=== PATIENT | male | born 1985 | race Caucasian/White ===

== ENCOUNTER 2019-11-24 14:50 | Emergency (ER) | payer OTHER ==
[~2019-11-24] VITALS: Ht 188 cm; Wt 79.7 kg
[2019-11-24] MEDS ORDERED: DICLOFENAC SODI75 MG PO (23:47)
[2019-11-24] MEDS ORDERED: OMEPRAZOLE20 MG PO (23:47)
== END 2019-11-24 23:58 | disposition home or self-care (01) ==
LOC: ED 14:50
DX: M94.0 Chondrocostal junction syndrome [Tietze] (principal); I10 Essential (primary) hypertension; Z87.891 Personal history of nicotine dependence
CPT/HCPCS: 71046; 99284-25

== ENCOUNTER 2020-04-13 18:34 | Observation (INO) | payer OTHER ==
[~2020-04-13] VITALS: Ht 188 cm; Wt 79.8 kg
[~2020-04-13 18:34] MED LIST: DICLOFENAC SODI75 MG PO; OMEPRAZOLE20 MG PO
[2020-04-13] MEDS ORDERED: OMEPRAZOLE40 MG PO (18:45)
[2020-04-13] MEDS ORDERED: NALTREXONE HCL50 MG PO (18:45)
[2020-04-13] MEDS ORDERED: ESCITALOPRAM OXA5 MG PO (18:45)
--- NOTE | 2020-04-13 22:30 | NUR ---
PT ARRIVED TO ROOM 128 AT 2150 VIA STRETCHER, ACCOMPANIED BY HIS MOTHER, CORTES. PT IS DROWSY, BUT ORIENTED. PT ABLE TO MOVE SELF OVER TO BED FROM STRETCHER WITHOUT ASSISTANCE. DENIES PAIN. CIWA: 7 AT THIS TIME. LUNGS CLEAR, RA. HR REGULAR. BOWEL TONES ACTIVE. IV INTACT & PATENT, INFUSING WNL. SCHEDULED MEDS GIVEN PER EMAR. SEIZURE PADS AND BED ALARM PLACED FOR SAFETY. QUIET, DARKENED ENVIRONMENT PROMOTED. CALL LIGHT WITHIN REACH, MOTHER REMAINS IN ROOM AT THIS TIME.
--- NOTE | 2020-04-14 00:33 | NUR ---
ASSESSMENT COMPLETED, CIWA 6 AT THIS TIME. PT DENIES PAIN. PT VOIDED USING URINAL, UA SENT TO LAB. REMAINDER OF ASSESSMENT UNCHANGED. NO FURTHER REQUESTS AT THIS TIME, SEIZURE PADS AND BED ALARM REMAIN ON FOR SAFETY.
--- NOTE | 2020-04-14 02:08 | NUR ---
PT SLEEPING SOUNDLY AT THIS TIME, RR:16, HR:86. HOLDING SCHEDULED PHENOBARBITAL AT THIS TIME.
--- NOTE | 2020-04-14 04:33 | NUR ---
PT SLEEPING SOUNDLY AT THIS TIME, NO APPARENT DISTRESS. RESPIRATIONS EVEN AND UNLABORED, LUNG SOUNDS REMAIN CLEAR ON ROOM AIR. RR:14, SPO2:99% HR REGULAR, RATE 80'S. IVF INFUSING WNL, IV SITE INTACT. BED ALARM AND SEIZURE PADS REMAIN IN PLACE FOR SAFETY, PT'S MOTHER SLEEPING ON COUCH. WILL ALLOW FOR REST AND CONTINUE TO MONITOR.
--- NOTE | 2020-04-14 05:25 | NUR ---
PT AWOKEN FOR MORNING LABS. CIWA 7 AT THIS TIME. SCHEDULED PHENOBARBITAL GIVEN PER ORDERS. MOTHER LEFT FOR HOME, STATED TO CALL IF PT'S BECOMES AGITATED OR ANXIOUS.
--- NOTE | 2020-04-14 06:54 | NUR ---
URINAL EMPTIED AND FRESH WATER PROVIDED. PT DENIES FURTHER REQUESTS.
--- NOTE | 2020-04-14 07:30 | NUR ---
REPORT RECIEVED. PATIENT IS RESTING IN BED.
--- NOTE | 2020-04-14 08:00 | NUR ---
IS AWAKE, DENIES PAIN. FLAT AFFECT. POOR EYE CONTACT. TALKED WITH PATIENT ABOUT POC FOR DAY, IS UNDERSTANDING. IVF PATENT. DENIES NAUSEA. CLEAR LIQUID BREAKFAST ORDERED. PATIENT MOTHER IN ROOM. PATIENT IS SHAKEY. STATES HE FLLES ANXIOUS. VALIUM 10 MG PO GIVEN.
[2020-04-14] MEDS ORDERED: VITAMIN D21250 MCG PO (09:04)
[2020-04-14] MEDS ORDERED: CLONAZEPAM0.5 MG PO (09:04)
--- NOTE | 2020-04-14 09:20 | NUR ---
TOOK CLEAR LIQUIDS WELL. DR. RICK HERE TO SEE PATIENT AND DISCUSS POC. ORDERS RECIEVED. PATIENT STATES HE IS MORE CALM AFTER TAKING VALIUM. REMAINS SHAKEY.
--- NOTE | 2020-04-14 10:23 | NUR ---
SPOKE WITH PATIENT IN ROOM. MOTHER IS IN ROOM ALSO. PATIENT LIVES IN APARTMENT WITH ROOMMATES. HAS STAIRS BUT HAS NO AMBULATION ISSUES. IS NOT EMPLOYED, DOES NOT DRIVE. PATIENT DENIES HE HAS FINANCIAL WORRY ABOUT COST OF MEDS, FOOD OR UTILITIES. PATIENT HAS OBVIOUS TREMORS, YAWNS MULTIPLE TIMES. IS ORIENTED, BUT DOES NOT MAKE EYE CONTACT WELL. PATIENT IS "NOT SURE" ABOUT IF HE WANTS RESOURCES FOR ALCOHOL AND DRUG PROGRAM. PATIENT STATES "I THINK I CAN DO THIS ON MY OWN". OFFERED TO CALL [facility] [employer] [facility] TO HAVE SOMEONE COME TALK WITH HIM ABOUT WHAT OPTIONS HE HAS AND POSSIBLE SUPPORT AFTER HE LEAVES HERE. PATIENT REFUSES, STATES "I'LL THINK ABOUT IT". DISCUSSED THAT TALKING WITH THEM DOESN'T MEAN HE HAS TO MAKE ANY DECISIONS IMMEDIATELY, ITS JUST SUPPORT. HE STILL REFUSES. ENCOURAGED HIM TO CONSIDER IT AND LET NURSES KNOW. PATIENT STATES HE HAS A LOT OF ANXIETY. ASKED IF HE HAS EVER SEEN [facility] TO HELP WITH ANXIETY. HE HAS NOT. GAVE HIM THE CONTACT INFO AND NUMBERS FOR [facility] ALCOHOL/DRUG PROGRAM AND [facility] PROGRAMS TO CONTACT AT HIS DECISION. PATIENT PLANS TO GO BACK TO HIS APARTMENT AT DISCHARGE. HIS MOTHER STATED SHE WAS TRYING TO CONVINCE HIM TO COME STAY WITH FAMILY. HE STATES HE WANTS TO SLEEP IN HIS OWN BED. HE DOES NOT WANT TO CONSIDER GOING ANYWHERE ELSE. DISCUSSED IF HE CHANGES HIS MIND ON ANYTHING AND WANTS ME TO COME BACK HE CAN LET NURSES KNOW.
--- NOTE | 2020-04-14 10:40 | NUR ---
TOOK EARLY LUNCH. TOOK APPROX 30%. DENEIS STONE.
--- NOTE | 2020-04-14 11:53 | NUR ---
SLEEPING AT THIS TIME. NO DISTRESS NOTED. WILL HOLD ON ASSESSMENT UNTIL WAKES.
--- NOTE | 2020-04-14 13:54 | NUR ---
2PA WITH ARCHIE LANDEROS , AMBULATING OUT IN AND [place] AND BACK TO CCU. PATIENT TOLERATED WELL. UP IN CHAIR, VITALS CHARTED. DAD BACK IN ROOM, CALL LIGHT IN REACH
--- NOTE | 2020-04-14 13:55 | NUR ---
AMBULATED AROUND UNIT. TOLERATED WELL. PATIENT STATES HE FEELS STABLE ON FEET. IS SHAKEY. MILD SHORTNESS OF BREATH. DR. RICK UPDATED. DR. RICK PLAN STO DISCHARGE PATIENT THIS AFTERNOON.
[2020-04-14] MEDS ORDERED: GABAPENTIN300 MG PO (14:00)
--- NOTE | 2020-04-14 14:00 | NUR ---
DISCHARGE MAUREEN RECIEVED. MONITOR DC'D. IV SITE DC'D WITH CATH INTACT.
--- NOTE | 2020-04-14 14:03 | NUR ---
NOTICED PT AMBULATING IN [place] WITH ARCHIE LANDEROS AND BELEN DAVIS. ENTERED UNIT AND FOUND PT'S FATHER STANDING IN [place]. I AM FAMILIAR WITH THE FAMILY AND DAD OLEKSANDR SHARED WITH ME THE PAIN HE FEELS FOR HIS SON AND FRUSTRATED THAT HE WON'T TRY TO HELP HIMSELF. PT ACCORDING TO OLEKSANDR DENIES HE NEEDS HELP. PT STATES THAT HE CAN "DO IT MYSELF". OLEKSANDR WOULD LIKE TO VISIT WITH DR RICK BEFORE SHIFT CHANGE AND ARCHIE LANDEROS WILL CONTACT . GAVE ENCOURAGEMENT AND ADDITIONAL CORSETIER.
--- NOTE | 2020-04-14 14:10 | NUR ---
DISCHARGE INSTURCTIONS GIVEN WITH PATIENT UNDERSTANDING.
--- NOTE | 2020-04-14 14:40 | NUR ---
DISCHARGED VIA W/C ACCOMP BALL MAKER AND FATHER.
--- NOTE | 2020-04-15 21:12 | EKG ---
[facility] [address] [facility] [place], [place] [address] Signed Normal sinus rhythm Right atrial enlargement Borderline ECG No previous ECGs available Confirmed by DEJON TAMAYO DO ([id number]) on 04/15/2020 9:12:22 PM Electronically Signed By: DEJON TAMAYO DO 04/15/202111 PATIENT NAME: OLLIE GRACE Electrocardiogram DATE OF : [birth year] PHYSICIAN: DEJON TAMAYO DO REPORT #: [id number] REPORT IS CONFIDENTIAL AND NOT TO BE RELEASED WITHOUT AUTHORIZATION
== END 2020-04-14 14:40 | disposition home or self-care (01) ==
LOC: ED 18:34 → CCU 18:36
PROVIDERS: ADMIT Internal Medicine
DX: F10.239 Alcohol dependence with withdrawal, unspecified (principal); R56.9 Unspecified convulsions; K70.10 Alcoholic hepatitis without ascites; E86.1 Hypovolemia; E87.1 Hypo-osmolality and hyponatremia; E86.0 Dehydration; E87.2 Acidosis; E83.52 Hypercalcemia; F41.9 Anxiety disorder, unspecified; Z79.899 Other long term (current) drug therapy; Y90.0 Blood alcohol level of less than 20 mg/100 ml
CPT/HCPCS: 36415; 72100; 72125; 80053; 81001; 83735; 85025; 85610; 93005; 93010; 96365; 96366; 96375; 96376; 99285-25; C9803; G0378; G0480; J2060; J2560; J3411; J7030; J7042; U0002

== ENCOUNTER 2020-05-12 10:58 | Day surgery (SDC) | payer OTHER ==
[~2020-05-12] VITALS: Ht 185.4 cm; Wt 83.4 kg
[~2020-05-12 10:58] MED LIST changes: +CLONAZEPAM0.5 MG PO; +ESCITALOPRAM OXA5 MG PO; +GABAPENTIN300 MG PO; +NALTREXONE HCL50 MG PO; +OMEPRAZOLE40 MG PO; +VITAMIN D21250 MCG PO
--- NOTE | 2020-05-12 13:00 | NUR ---
05/12/20 1300 Vivi Miranda 1237 PT ARRIVED IN PACU LAYING IN PRONE POSITION AND WIDE AWAKE. 1240 REPOSITIONED TO BACK AND TALKING TO STAFF. 1245 PT GETTING DRESSED. DC INSTRUCTIONS GIVEN. ALL QUESTIONS ANSWERED. 1250 LEFT VIA W/C.
--- NOTE | 2020-05-14 17:23 | PATH ---
[facility] [address] [facility] [place] [address] Signed SPECIMEN(S): A BONE MARROW - CORE SPECIMEN(S): B BONE MARROW - ASPIRATION SPECIMEN(S): C COMP-FLOW, BM EDTA CLINICAL HISTORY: 34-year-old male with alcohol use disorder, pancytopenia and chest wall mass. D61.818 (other pancytopenia) DIAGNOSIS SUMMARY: A. Peripheral blood - Neutropenia. - Low normal hemoglobin with elevated MCV. B. Bone marrow, aspirate smears, clot section cell block and core biopsy: - Hypocellular bone marrow (30-40%) with progressive trilineage hematopoiesis. - No morphologic or immunophenotypic evidence of high-grade myeloid neoplasia or a lymphoproliferative disease. - Increased stainable iron. - Please see Diagnostic Comment. DIAGNOSTIC COMMENT: Review of included clinical notes reveals a history of chronic alcohol use with neutropenia. The bone marrow examination demonstrates no morphologic or immunophenotypic evidence of high-grade myeloid neoplasia or a lymphoproliferative disease. The peripheral blood and bone marrow findings could be related to toxic effect of alcohol on normal hematopoiesis. Low-grade myelodysplastic syndrome cannot be entirely excluded. FISH probes for MDS and cytogenetic study have been ordered and the results will be reported in an addendum. GP:[facility]:C2NR PERIPHERAL BLOOD: HEMOGRAM ([facility], 05/12/2020): WBC 2.6 K/uL, RBC 3.8 M/uL, HGB 13.7 g/dL, HCT 40.0%, MCV 105.2 fL, MCH 36 pg, MCHC 34 g/dL, RDW 12.7%, PLT 208 K/uL. DIFFERENTIAL (100 cells): Neutrophils 31%, lymphocytes 62%, monocytes 2%, eosinophils 4%, basophils 1%. The blood smear is consistent with the CBC. WBC count is moderately decreased with absolute neutropenia. Neutrophils and bands are unremarkable. No blasts or otherwise immature dells detected. Lymphocytes are predominantly small, with condensed chromatin pattern and scant to moderate amount of cytoplasm. Rare large granular lymphocytes are noted. PATIENT NAME: OLLIE GRACE PATHOLOGY DATE OF : [birth year] REPORT #: [id number] PHYSICIAN: ELI MASON PCP: ZAKI ORTEZ MD REPORT IS CONFIDENTIAL AND NOT TO BE RELEASED WITHOUT AUTHORIZATION [facility] [address] [place], [place] [address] Signed Hemoglobin is low normal with elevated MCV; red blood cells are predominantly round, normochromic, macrocytic. Occasional myelocytes, spherocytes and rare target cells are noted. Schistocytes are not significantly increased. Platelets are normal in count and appearance. GP:[facility] BONE MARROW: BONE MARROW DIFFERENTIAL (300 cells): Blasts 2%, promyelocytes 2%, myelocytes 5%, 5%, metamyelocytes 6%, bands 21%, neutrophils 15%, pronormoblasts 1%, normoblasts 25%, lymphocytes 14%, plasma cells 5%, monocytes 1%, eosinophils 3%. ASPIRATE SMEARS: The aspirate smears are adequately cellular and demonstrate trilineage hematopoietic elements at different stages of maturation. M:E ratio is mildly decreased. Myelopoiesis is progressive with maturing neutrophils and bands. Blasts are not increased. Erythroid precursors demonstrate mild megaloblastoid changes. No other dysmorphic features are identified. Morphologically unremarkable plasma cells are mildly increased (5% on differential count). Megakaryocytes are normal in count and appearance. No significant lymphoid population is detected. BONE MARROW BIOPSY: The biopsy is adequate for evaluation. Histologic sections demonstrate hypocellular bone marrow for the patient's age (overall estimated cellularity is approximately 30-40%) with trilineage hematopoietic elements at different states of maturation. The myelopoiesis is progressive with maturation towards maturation towards segmental neutrophils and bands. Erythroid colonies are seen. M:E ratio appears decreased. Megakaryocytes are evenly distributed and demonstrate normal cytomorphology. No abnormal lymphoid infiltrates detected. Scattered interstitial plasma cells are noted. Negative for fibrosis, granulomas, or non-hematopoietic neoplasms. CLOT SECTION: The clot section shows hypocellular bone marrow fragments with similar morphologic alterations. SPECIAL STAINS: - Iron (aspirate smear and clot section): Increased stainable iron; no ring sideroblasts detected. - Reticulin (bone marrow core biopsy): No significant reticulin fibrosis. IMMUNOHISTOCHEMICAL STAINS (bone marrow core biopsy): - CD3: Positive in interstitial T-cells. - PAX5: Positive in rare B-cells. PATIENT NAME: OLLIE GRACE PATHOLOGY DATE OF : [birth year] REPORT #: [id number] PHYSICIAN: ELI PATHOLOGY PCP: ZAKI ORTEZ MD REPORT IS CONFIDENTIAL AND NOT TO BE RELEASED WITHOUT AUTHORIZATION [address] [address] Signed - CD34: Positive in endothelial cells and rare immature cells. - CD117: Positive in rare mast cells. - CD71: Positive in erythroid precursors (highlights erythroid colonies). - Factor VIII: Positive in megakaryocytes. - Myeloperoxidase: Positive in myeloid precursors. - CD138: Positive in plasma cells (highlights perivascular plasma cell aggregates). In-situ hybridization: - Guin: Positive in a subset of plasma cells. - Lambda: Positive in a subset of plasma cells (polytypic staining pattern). GP:[facility] FLOW CYTOMETRY: Bone marrow, flow cytometry: - No increase in blasts. - No monoclonal B-cell or aberrant T-cell populations detected. - Please see Comment. COMMENT: The flow cytometry study demonstrates no immunophenotypic evidence of a hematolymphoid malignancy. Correlation with clinical and morphologic findings is required for complete interpretation of the flow cytometry results and to evaluate for disorders not fully characterized by flow cytometric analysis including myelodysplastic syndromes, myeloproliferative neoplasms and others. GP:[facility] FLOW CYTOMETRY ANALYSIS: FLOW DIFFERENTIAL (% Total CD45 vs. SSC gating): Myeloid 67%; Lymphoid 11%; Monocyte 2%; Dim CD45/Blast: 1%. Cell Count: 3.2 x 10*3/uL. POPULATION ANALYSIS: BLASTS: Analysis of the dim CD45 gate demonstrates 1% myeloblasts by CD34/CD117. LYMPHOID CELLS: The lymphocyte gate comprises 11% of total events and includes 86% T-cells with a CD4:CD8 ratio of 1.2:1 and normal marquez T-cell antigen expression. 6% of lymphocytes are polyclonal B-cells with a kappa:lambda ratio of 1.5:1. The remainders are NK-cells. MYELOID CELLS: The myeloid population comprises 67% of the total events. No aberrant or immature immunophenotypic expression is detected. MONOCYTES: The monocyte population comprises 2% of the total events. Monocytes are not increased. No aberrant immunophenotypic expression is detected. PLASMA CELLS: 0.3% plasma cells are detected in the screening gate neg-dimCD45/CD38. Plasma cells are CD45 dim and positive for CD19. PATIENT NAME: OLLIE GRACE PATHOLOGY DATE OF : [birth year] REPORT #: [id number] PHYSICIAN: ELI MASON PCP: ZAKI ORTEZ MD REPORT IS CONFIDENTIAL AND NOT TO BE RELEASED WITHOUT AUTHORIZATION [facility] [address] [place], [place] [address] Signed ANTIBODIES USED: KAPPA, LAMBDA, CD20, CD10, CD19, CD23, CD38, FMC7, CD16, CD56, CD8, CD5, CD2, CD4, CD7, CD3, CD14, CD33, CD13, HLADR, CD34, CD117, CD15, CD45: TOTAL ANTIBODIES USED: 24. TCS FINAL DIAGNOSIS PERFORMED BY: Rafat Christensen MD. MPH, Pathologist May 13 2020 5:13PM CYTOGENETICS: Pending, to be reported by addendum. FISH ANALYSIS: Pending, to be reported by addendum. GROSS DESCRIPTION: A. The specimen, labeled "Christophe, bone core," is received in formalin and consists of a 1.1 cm cai bone core. It is submitted in cassette (A1) following decalcification in Immunocal for 1.5 hours. B. The specimen, labeled "Christophe, clot," is received in formalin and consists of a 1.8 x 1.3 x 0.1 cm aggregate of blood clot. It is submitted entirely in cassette (B1). TN (under the direct supervision of a pathologist) The Gross Description was prepared using a voice recognition system. The report was reviewed for accuracy; however, sound-alike word errors, addition and/or deletions may occur. If there is any question about this report, please contact Client Services. ADDITIONAL NOTES: Immunohistochemical and/or in situ hybridization studies were performed on this case with the appropriate positive controls that react as expected. This test was developed and its performance characteristics determined by [facility]. It has not been cleared or approved by the U.S. Food and Drug Administration. The FDA has determined that such clearance or approval is not necessary. This test is used for clinical purposes. It should not be regarded as investigational or for research. [facility] is certified under the Clinical Laboratory Improvement Amendments of 1988 (CLIA) as qualified to perform high complexity clinical laboratory testing. In this case, certain antibodies were performed by both immunohistochemistry and flow cytometry analysis because flow cytometry analysis did not fully PATIENT NAME: OLLIE GRACE PATHOLOGY DATE OF : [birth year] REPORT #: [id number] PHYSICIAN: ELI MASON PCP: ZAKI ORTEZ MD REPORT IS CONFIDENTIAL AND NOT TO BE RELEASED WITHOUT AUTHORIZATION [address] [address] Signed explain all the light microscopic findings. Immunohistochemistry aided in the analysis. Both methods are deemed medically necessary in this case. This test was developed and its performance characteristics determined by [facility]. It has not been cleared or approved by the US Food and Drug Administration. The FDA does not require this test to go through premarket FDA review. This test is used for clinical purposes. It should not be regarded as investigational or for research. This laboratory is certified under the Clinical Laboratory Improvement Amendments (CLIA) as qualified to perform high complexity clinical laboratory testing. PERFORMING LABORATORY: The technical component of flow cytometry was performed by [facility], [address] [place] [address] (Cableman: Usman Maravilla D.O.; CLIA#: [id number]). Professional interpretation of flow cytometry was performed by [facility], [facility], [facility] [address] [place] [id number] (Cableman: Giuseppe Rogers M.D.; CLIA#: [id number]). The technical component was performed by [facility], [address] [place] [address] (Cableman: Usman Maravilla D.O.; CLIA#: [id number]). Professional interpretation was performed by [facility], [facility], [facility] [address]. [facility] [place] [address] (Cableman: Giuseppe Rogers M.D.; CLIA#: [id number]). IMAGES: [id number]: [id number]: [id number] Diagnostician: Rafat Christensen MD. MPH Pathologist Electronically Signed 05/14/2020 Copies: ~ PATIENT NAME: OLLIE GRACE PATHOLOGY DATE OF : [birth year] REPORT #: [id number] PHYSICIAN: ELI MASON PCP: ZAKI ORTEZ MD REPORT IS CONFIDENTIAL AND NOT TO BE RELEASED WITHOUT AUTHORIZATION
== END 2020-05-12 12:50 | disposition home or self-care (01) ==
LOC: OPS 10:58 → DS 11:01 → OPS 12:00 → DS 12:00 → OPS 12:50
PROVIDERS: Specialist
PROC: 079T3ZX Drainage of Bone Marrow, Percutaneous Approach, Diagnostic (ICD-10-PCS; 2020-05-12)
PROC: 07DR3ZX Extraction of Iliac Bone Marrow, Percutaneous Approach, Diagnostic (ICD-10-PCS; principal; 2020-05-12 12:00)
DX: D70.9 Neutropenia, unspecified (principal); R22.2 Localized swelling, mass and lump, trunk; F10.10 Alcohol abuse, uncomplicated; F41.9 Anxiety disorder, unspecified; K21.9 Gastro-esophageal reflux disease without esophagitis; Z79.899 Other long term (current) drug therapy; Z88.8 Allergy status to other drugs, medicaments and biological substances
CPT/HCPCS: 80053; 82607; 82728; 82746; 82784; 83540; 83615; 83883; 84155; 84165; 84466; 85025; G0500; J2250; J3010

== ENCOUNTER 2021-08-22 16:42 | Emergency (ER) | payer OTHER ==
[~2021-08-22] VITALS: Ht 185.4 cm; Wt 83.0 kg
[2021-08-22] MEDS ORDERED: ATIVAN1 MG PO (21:31)
== END 2021-08-22 21:44 | disposition home or self-care (01) ==
LOC: ED 16:42
DX: R17 Unspecified jaundice (principal); Z20.822 Contact with and (suspected) exposure to COVID-19; I10 Essential (primary) hypertension; F17.200 Nicotine dependence, unspecified, uncomplicated; Z88.8 Allergy status to other drugs, medicaments and biological substances
CPT/HCPCS: 76705; 80053; 81001; 83690; 85025; 85610; 85730; 96374; 96375; 99285-25; C9803; J2060; J2405; U0003

== ENCOUNTER 2022-05-15 11:58 | Inpatient (IN) | payer OTHER ==
[~2022-05-15] VITALS: Ht 188 cm; Wt 88.4 kg
[~2022-05-15 11:58] MED LIST changes: +ATIVAN1 MG PO
--- OUTSIDE RECORDS SUMMARY | 2022-05-15 12:02 | XMS ---
PreManage Notification: OLLIE GRACE Security Auto Body Man Events No recent Security Events currently on file CRITERIA MET - [facility] CARE PROVIDERS There are no care providers on record at this time. Chloe has no Care Guidelines for this patient. Bridgett VISIT COUNT (12 MO.) [address] [facility] 2 JESS[facility] TOTAL 3 NOTE: Visits indicate total known visits. ED/C VISIT TRACKING (12 MO.) 05/15/2022 11:59 [facility] [place] TYPE: Emergency COMPLAINT: - SEIZURE 08/30/2021 16:21 [facility] TYPE: Emergency DIAGNOSES: - Unspecified jaundice - Alcoholic hepatitis without ascites - Hematuria - Jaundice (Adult) - Melena - Elevation of levels of liver transaminase levels 08/22/2021 16:43 [facility] [place] TYPE: Emergency COMPLAINT: - MULTIPLE COMPLAINTS DIAGNOSES: - Nicotine dependence, unspecified, uncomplicated - Alcoholic hepatitis without ascites - Essential (primary) hypertension - Unspecified jaundice - Allergy status to other drugs, medicaments and biological substances INPATIENT VISIT TRACKING (12 MO.) No inpatient visits to display in this time frame [email or web address]
[2022-05-15] MEDS ORDERED: GABAPENTIN300 MG PO (12:24)
[2022-05-15] MEDS ORDERED: OMEPRAZOLE20 MG PO (12:25)
[2022-05-15] MEDS ORDERED: ESCITALOPRAM OX20 MG PO (12:25)
--- NOTE | 2022-05-15 15:50 | NUR ---
REPORT RECEIVED FROM RADIOISOTOPE PRODUCTION OPERATOR, CARE OF PT ASSUMED AT THIS TIME. PT TRANSPORTED VIA STRETCHED ON MOBILE DEVELOPMENT MANAGER TO CCU BY NURSING FLOAT. PT UNABLE TO MOVE SELF FROM STRETCHER TO BED. PT NOW RESTING IN BED. THIS RN AT BEDSIDE TO COMPLETE ASSESSMENT.
--- NOTE | 2022-05-15 16:25 | NUR ---
INITIAL ASSESSMENT COMPLETED. PT ALERT AND ORIENTED X2, ANXIOUS, MODERATELY TREMULOUS AT REST, COMPLAINS OF A HEADACHE, BUT DENIES HALLUCINATIONS. CIWA OF 19 ON ADMISSION. PRN ATIVAN ADMINISTERED. PT'S PUPILS DILATED BUT REACTIVE TO LIGHT. SKIN IS FLUSHED. ABDOMEN IS MIDLY DISTENDED AND TENDER UPON PALPATION. PLAN OF CARE ESTABLISHED WITH PT. SEZIURE PADS IN PLACE ON BED AND CALL LIGHT WITHIN REACH. WILL CONTINUE TO CLOSELY MONITOR.
--- NOTE | 2022-05-15 16:59 | NUR ---
DISCUSSED PTS CURRENT ASSESSMENT FINDINGS AND CIWA SCORE WITH DR VELIZ. ONE TIME DOSE OF VALIUM ORDERED (SEE EMAR). SECOND IV STARTED IN PT RIGHT FOREARM. WELL TOLERATED. CALL LIGHT WITHIN REACH. WILL CONTINUE TO MONITOR.
--- NOTE | 2022-05-15 17:59 | NUR ---
PT NEEDED TO URINATE. STOOD AT BEDISDE TO VOID. PT HEART RATE UP INTO THE 130S WITH ACTIVITY. PT UNSTEADY ON FEET, TREMULOUOS IN HANDS WHILE HOLDING URINAL. PT ABLE TO FOLLOW MOST COMMANDS AND REMAINS DIRECTABLE. URINE JEANETTE COLORED. PT NOW BACK IN BED. REPORTS IV VALIUM HAS IMPROVED HIS WITHDRAWAL SYMPTOMS. RAILS UP, SEZIURE PADS IN PLACE, IV FLUIDS INFUSING. FATHER REMAINS AT PT BEDSIDE.
[2022-05-15] MEDS ORDERED: LORAZEPAM1 MG PO (18:06)
--- NOTE | 2022-05-15 18:25 | NUR ---
Pt is disoriented by date and time. still has garbled speech, and mild headache. tremors have decreased. CIWA score of 13 shows some improvement. Pt is currently in bed watching tv. pt father is currently in room. call light within reach.
[2022-05-15] MEDS ORDERED: METAMUCIL660 GM PO (18:48)
--- NOTE | 2022-05-15 18:48 | NUR ---
MED REC COMPLETE
--- NOTE | 2022-05-15 20:03 | NUR ---
PT RESTING IN BED AT THIS TIME AWAKE AND ALERT. IVF INFUSING AT ORDERED RATE, SEIZURE PADS IN PLACE, PT'S FATHER AT THE BEDSIDE. PT ALERT AND ORIENTED TO ALL BUT DATE AT THIS TIME. CIWA 13 SCORED FOR VISIBLE HAND TREMORS, MILD NAUSEA, MILD HEADACHE, NOT BEING ORIENTED TO DATE, RESTLESSNESS, AND MILD ANXIETY. VITALS TAKEN (SEE CHART). PRN ATIVAN THEN ADMINISTERED (SEE MAR). PT ASSESSMENT THEN COMPLETED. PT FOLLOWS DIRECTIONS AND RESPONDS APPROPRIATELY, LUNGS ARE CLEAR, PT DENIES SHORTNESS OF BREATH. ACTIVE BOWEL TONES PRESENT, ABDOMEN SOFT, PT REPORTS NO PAIN WHEN ABDOMEN WAS PALPATED THOUGH DID STATE HE SOMETIMES FEELS PAIN IN ABDOMEN AND POINTED TO HIS RIGHT UPPER QUADRANT. PULSES STRONG, CAP REFILL BRISK, PT DENIES N&T TO EXTREMITIES. SKIN INTACT BUT IS NOTED TO BE WARM AND RED/FLUSHED. AFTER ASSESSMENT PT WAS PROVIDED WITH ICE WATER AND HIS URINAL WAS EMPTIED OF 425 YELLOW URINE. SCHEDULED GABAPENTIN THEN ADMINISTERED (SEE MAR). PT REPORTS NO FURTHER NEEDS AT HTIS TIME AND REMAINS IN BED WATCHING TV. CALL LIGHT IN REACH, BED IN LOWEST POSITION, BED ALARM ON.
--- NOTE | 2022-05-15 20:52 | NUR ---
PT RESTING IN BED AT THIS TIME WITH EYES CLOSED. IVF INFUSING. PT AWOKE EASILY AND WAS ORIENTED. HEAD OF BED LOWERED FOR PT'S COMFORT. CIWA 4 AT THIS TIME FOR MILD/VISIBLE TREMORS IN HANDS, MILD ANXIETY, AND A VERY MILD HEADACHE. PT REPORTS NO NEEDS AT THIS TIME WHEN ASKED. PT NOW RESTING ON HIS SIDE IN BED WITH EYES CLOSED. CALL LIGHT IN REACH, BED IN LOWEST POSITION, WILL CONTINUE PLAN OF CARE.
--- NOTE | 2022-05-15 21:34 | NUR ---
PT BED ALARM GOING OFF. PT SITTING UP IN BED MOVING HIMSELF TOWARDS THE EDGE. PT ASKED IF HE NEEDS TO USE THE URINAL, PT STATED YES. PT ABLE TO STAND AT THE BEDSIDE WITH MINIMAL ASSISTANCE AND WAS ABLE TO VOID INTO THE URINAL 350ML. PT NOW BACK IN BED. CIWA 9 SCORED FOR MILD NAUSEA, TREMORS, ANXIETY, MILD ANXIETY, MILD RESTLESSNESS, MILD HEADACHE AND CLOUDING OF SENSORIUM (COULD NOT ADD SERIAL NUMBERS). SCHEDULED PO ATIVAN TAPER ADMINISTERED AT THIS TIME (SEE MAR). PT REPORTS NO FURTHER NEEDS AT THIS TIME AND IS NOW RESTING IN BED. IVF INFUSING, CALL LIGHT IN REACH, BED IN LWOEST POSTION, WILL CONTINUE PLAN OF CARE.
--- NOTE | 2022-05-15 22:40 | NUR ---
PT NOTED TO BE UP IN BED SITTING AND MOVING TOWARDS EDGE OF THE BED. PT STATED HE NEEDED TO VOID. PT ASSISTED IN STANDING AND WITH HOLDING THE URINAL, PT VOIDED 475ML AND WAS THEN ASSISTED BACK INTO BED. CIWA OF 11 SCORED FOR RESTLESSNESS, TREMORS, ANXIETY, AND CLOUDY SENSORIUM. RN MARYBETH ASSISTED THIS RN AND ADMINISTERED PRN ATIVAN IV (SEE MAR). PT NOW RESTING IN BED AND REPORTS NO FURTHER NEEDS WHEN ASKED. CALL LIGHT IN REACH, BED IN LOWEST POSITION, BED ALARM ON, IVF INFUSING, WILL CONTINUE PLAN OF CARE.
--- NOTE | 2022-05-15 23:31 | NUR ---
PT RESTING IN BED AWAKE AND IS NOTED TO BE DRY HEAVING. PT REPORTS NAUSEA WHEN ASKED. CIWA ASSESSED AND WAS 9 FOR NAUSEA, TREMORS IN HANDS, CLOUDY SENSORIUM, ANXIETY, AND MILD RESTLESSNESS. PRN ZOFRAN AND PRN IV ATIVAN ADMINISTERED (SEE MAR). ASSESSMENT THEN COMPLETED (SEE CHART). VITALS THEN TAKEN (SEE CHART). IVF INFUSING AT ORDERED RATE, HEART LEADS REPLACED AT THIS TIME. PT NOW RESTING IN BED AND REPORTS NO FURTHER NEEDS WHEN ASKED. CALL LIGHT IN REACH, BED IN LOWEST POSITION, WILL CONTINUE PLAN OF CARE.
--- NOTE | 2022-05-16 00:09 | NUR ---
PT RESTING IN BED WITH EYES CLOSED. RESPIRATIONS EVEN AND UNLABORED. SPO2 NOTED TO DECREASE TO 82-88% DURING THIS TIME. PT SLIGHTLY DROWSY BUT AWOKE EASILY, SPO2 INCREASED TO 92-93%. NO SHORTNESS OF BREATH REPORTED BY PT. PT PLACED ON 2L O2 NC TO MAINTAIN SPO2 ABOVE 90% WHILE PT RESTS IN BED. PT REPORTS NO FURTHER NEEDS, PT IN NO APPARENT DISTRESS AT THIS TIME, WILL CONTINUE PLAN OF CARE. CALL LIGHT IN REACH, BED IN LOWEST POSITION, BED ALARM ON.
--- NOTE | 2022-05-16 01:00 | NUR ---
PT RESTING IN BED WITH EYES CLOSED. IVF INFUSING, PT ON 2L O2 NC, SPO2 95%. PT IN NO APPARENT DISTRESS AT THIS TIME, RESPIRATIONS EVEN AND UNLABORED. PT WAS LEFT UNDISTURBED. CALL LIGHT WITHIN REACH, BED IN LOWEST POSITION, BED ALARM ON, WILL CONTINUE PLAN OF CARE.
--- NOTE | 2022-05-16 01:30 | NUR ---
PT NOTED TO BE AWAKE IN ROOM. IVF INFUSING, PT ON 2L O2 NC. PT SAT UP IN BED. PT ASKED IF HE NEEDED TO VOID. PT STATED YES. PT ASSISTED WITH STANDING AT THE BEDSIDE AND USING THE URINAL. HR NOTED TO INCREASE WHILE STANDING, PT GAIT STILL UNSTEADY. PT ASSISTED BACK INTO BED AND WAS PROVIDED WITH SIPS OF WATER. PT CIWA 8 FOR TREMORS, REPORTED ANXIETY, AND RESTLESSNESS. PRN IV ATIVAN ADMINISTERED (SEE MAR). PT REPORTS NO FURTHER NEEDS AND IS NOW RESTING IN BED. CALL LIGHT IN REACH, BED IN LOWEST POSITION, BED ALARM ON, WILL CONTINUE PLAN OF CARE.
--- NOTE | 2022-05-16 02:30 | NUR ---
PT RESTING IN BED WITH EYES CLOSED. IVF INFUSING, PT ON 2L O2 NC, SPO2 97-100%. PT AWOKE EASILY AT THIS TIME, SCHEDULED PO ATIVAN ADMINISTERED (SEE MAR). PT REMAINS RESTING IN BED AND REPORTS NO FURTHER NEEDS WHEN ASKED. CALL LIGHT IN REACH, BED IN LOWEST POSITION, BED ALARM ON, WILL CONTINUE PLAN OF CARE.
--- NOTE | 2022-05-16 03:55 | NUR ---
PT RESTING IN BED AT THIS TIME WITH EYES CLOSED. IVF INFUSING, PT ON 2L O2 NC. PT AWOKE EASILY AND WAS ORIENTED. VITALS TAKEN AT THIS TIME (SEE MAR). PT CIWA THEN SCORED AND WAS 8, PRN PO ATIVAN ADMINISTERED (SEE CHART/EMAR). PT ASSESSMENT THE COMPLETED. PT ALERT AND ORIENTED X4, GARBLED SPEECH STILL PRESENT. HEART RYTHM REGULAR, LUNGS CLEAR, ABDOMEN SOFT, NO PAIN REPORTED WHEN PALPATED. PULSES STRONG, CAP REFILL BRISK, NO N&T IN EXTREMITIES REPORTED WHEN ASKED. PT DENIES THE NEED TO VOID AT THIS TIME WHEN ASKED. PT PROVIDED WITH ICE WATER AND REPORTS NO FURTHER NEEDS WHEN ASKED. PT NOW RESTING IN BED. CALL LIGHT IN REACH, BED IN LOWEST POSITION, BED ALARM ON. WILL CONTINUE PLAN OF CARE.
--- NOTE | 2022-05-16 05:51 | NUR ---
PT RESTING IN BED WITH EYES CLOSED. PT ON 2L O2 NC, IVF INFUSING ORDERED. PT IN NO APPARENT DISTRESS, RESPIRATIONS EVEN AND UNLABORED. PT LEFT UNDISTURBED, WILL CONTINUE PLAN OF CARE.
--- NOTE | 2022-05-16 06:30 | NUR ---
PT AWAKE AND ALERT LAYING IN BED ON 2L O2 NC, IVF INFUSING. PT CIWA 8 DUE TO TREMORS, ANXIETY, AND CLOUDING OF SENSORIUM (UNABLE TO ADD SERIAL NUMBERS). SCHEDULED ATIVAN TAPER ADMINISTERED VIA IV (SEE NOV). PT REPORTS NO FURTHER NEEDS AT THIS TIME WHEN ASKED AND REMAINS RESTING IN BED. CALL LIGHT IN REACH, BED ALARM ON, WILL CONTINUE PLAN OF CARE.
--- NOTE | 2022-05-16 07:30 | NUR ---
PATIENT SHIFT REPORT RECIEVED FROM [employer] REPRESENTATIVE RN. PATIENT RESTING IN BED. PATIENTS DAD IS AT THE BEDSIDE. PATIENT RESTING ON HIS SIDE AT THIS TIME. WILL CONTINUE TO CLOSELY MONITOR.
--- NOTE | 2022-05-16 07:40 | NUR ---
Spoke with pt and his father, Andrea. Pt gives permission for me to speak dad as he does not feel well. Per dad, pt has lived with them for the last 3 years, he does not work, he skateboards, he is an alcoholic, per dad, pt will be homeless on dc. They have decided he can no longer live with them. Dad will like pt to go to rehab. I discussed with dad, I can offer, but if pt is not willing I cannot force him. We then discussed addiction and pt needs to be willing or rehab will not help. Dad states pts address and phone are wrong in are chart. Pts cell phone is broken, dad will get him a new one. I then spoke with pt and he states he is not interested in speaking with [facility] or [facility]. He will consider it, but not today. Pt is not feeling well. DAd wants to know what he can do to help Kiran. I suggested he call [facility] and get help for himself and his . [facility] card given.
--- NOTE | 2022-05-16 09:01 | NUR ---
PATIENT RESTING IN BED, WOKE TO VOICE. FAMILY IN ROOM. VITALS CHARTED, FACE WASHED AND CLEAN PILLOWCASES PROVIDED. RN AT BEDSIDE AT THIS TIME.
--- NOTE | 2022-05-16 09:30 | NUR ---
PATIENT RESTING IN BED. PATIENT IS EASILY AWAKEABLE. PATIENT IS A BIT GROGGY, BUT IS ALERT AND ORIENTED TO SELF, PLACE, AND MONTH. PATIENT BREATH SOUNDS CLEAR, BOWEL TONES ACTIVE. PATIENTS MICAELA JENNIFER IS AT THE BEDSIDE. PATIENT TOOK HIS MEDICATIONS OKAY. PATYT COMPLAINS OF A SORE THROAT. PATIENT HAD A COUPLE BITES OF JELLO. PATIENT NOW RESTING. LIGHTS DIMMED TO DECREASE STIMULATION. WILL CONTINUE TO CLOSELY MONITOR. CALL LIGHT IN REACH.
--- NOTE | 2022-05-16 11:40 | NUR ---
THIS RN IN TALKING WITH PATIENTS DAD JENNIFER. PATIENT AND HIS FAMILY HAVE HAD A LOT OF STRESSORS THIS YEAR. REVIEWED OPTIONS WITH PATIENTS FAMILY. PATIENT IS CURRENTLY RESTING. WILL CONTINUE TO CLOSELY MONITOR.
--- NOTE | 2022-05-16 11:53 | NUR ---
MET WITH PT'S FATHER OLEKSANDR. PT ASLEEP, DID NOT AWAKEN DURING MY VISIT. OLEKSANDR REALLY STRUGGLING, LOST A SON EARLIER THIS YEAR, AND FEARS THE WORST FOR PT. HOPES HE RUSLAN GO TO REHAB, DISCUSSING WITH CM. GAVE ENCOURAGEMENT AND BLESSING. WILL FOLLOW
--- NOTE | 2022-05-16 13:00 | NUR ---
THIS RN IN TO CHECK ON PATIENT D/T TELEMETRY COMING OFF. PATIENT IS MODERATELY SHAKING. CIWA 10. PRN ATIVAN GIVEN PER ORDERS. PATIENT IS TOLERATING WELL. WILL CONTINUE TO CLOSELY MONITOR. PATIENTS DAD REMAINS AT THE BEDSIDE.
--- NOTE | 2022-05-16 15:00 | NUR ---
[facility] IN TO VISIT WITH PATIENT AND HIS FATHER. WILL CALL [facility] AND UPDATE WHEN PATIENT IS GETTING CLOSER TO DISCHARGE. PATIENT AND FAMILY CURRENTLY AGREEABLE TO INPATIENT REHAB. THEY WILL WORK ON THIS PROCESS PATIENT IS THROUGH WITHDRAWLS.
--- NOTE | 2022-05-16 15:11 | NUR ---
2PA, PATIENT SITTING ON SIDE OF BED FOR BEDBATH AND LINEN CHANGE. PATIENT IN GOWN NOW, PERSONAL UNDERWEAR AND SHORTS IN BELONGINGS BAG. PATIENT ABLE TO STAND WITH ASSISTANCE TO CLEAN HIS OWN ASTON AREA. PATIENT BACK INTO BED, ALARM ON FOR SAFETY. DAD IN ROOM. EYE CARE PROVIDED THEY ARE CRUSTED OVER AND DIFFICULT TO OPEN WHEN PATIENT WAKES UP. PATIENT SIPPING ON ICE WATER.
--- NOTE | 2022-05-16 15:40 | NUR ---
ORAL ATIVAN GIVEN PER ORDERS. PATIENT HAD A BED BATH AND TOLERATED WELL. PATIENT CARLOS IS A 9. SPOKE WITH MD VELIZ ABOUT PATIENT RED, SWOLLEM, GOOPY EYES. MD WILL LOOK INTO MEDICATIONS AVAILABLE. NO NEW ORDERS AT THIS TIME.
--- NOTE | 2022-05-16 17:30 | NUR ---
PATIENT RESTING IN BED. PATIENTS DAD LEFT FOR THE EVENING. NO OTHER NEEDS AT THIS TIME. WILL CONTINUE TO CLOSELY MONITOR.
--- NOTE | 2022-05-16 19:00 | NUR ---
THIS RN IN TO ASSESS PATIET. PRN ATIVAN GIVEN FOR CIWA 10. PATIENT UP TO EDGE OF BED TO USE URINAL. PATIENT IS MORE ALERT THIS AFTERNOON AND WANTS TO WATCH TV. PATIENT DRINKING WATER. BED ALARM ON FOR PATIENTS SAFETY. PATIENT IS COUGHING UP THICK YELLOW SPUTUM NOW, CONTINUES TO COMPLAIN OF A SORE THROAT, HAS HAD A LOW GRADE TODAY, AND RED, CRUSTY EYES. SEE NEW ORDERS. PATIENT RESTING NOW AT THIS TIME. WILL CONTINUE TO CLOSELY MONITOR.
--- NOTE | 2022-05-16 19:48 | NUR ---
REPORT RECEIVED FROM DHARMESH RN, WILL CONTINUE PLAN OF CARE.
--- NOTE | 2022-05-16 20:47 | NUR ---
PT RESTING IN BED ALERT AND ORIENTED X4 RESTING IN BED WATCHING TV. IVF INFUSING, PT ON 2L O2 NC. SPO2 100%. PT TITRATED OFF O2 AT THIS TIME AND REMAINS ON 100% WHILE ON ROOM AIR. VITALS TAKEN AT THIS TIME (SEE CHART). PT REPORTS NAUSEA AT THIS TIME. CIWA SCORED AT 6 (SEE CHART). SCHEDULED MEDICATIONS ADMINSTERED ALONG WITH PRN ZOFRAN. PO ATIVAN GIVEN FOR TAPER (SEE MAR). IV ABX NOW INFUSING ORDERED. ASSESSMENT THEN COMPLETED. PT AWAKE AND ALERT, FOLLOWS DIRECTIONS, IS ORIENTED X4, HR REGULAR IN RYTHM, LUNGS ARE CLEAR, PT DENIES SHORTNESS OF BREATH. ABDOMEN SOFT, PT REPORTS PAIN IN RUQ WHEN PALPATED. ACTIVE BOWEL TONES PRESENT. PULSES STRONG, CAP REFILL BRISK, PT DENIES N&T TO EXTREMTIES. PT PROVIDED WITH ICE WATER, JELLO, AND A CLEAR ENSURE. PT REPORTS NO FURTHER NEEDS WHEN ASKED, WILL CONTINUE PLAN OF CARE. CALL LIGHT IN REACH, BED IN LOWEST POSITION.
--- NOTE | 2022-05-16 23:05 | NUR ---
PT RESTING IN BED AWAKE AT THIS TIME ALERT AND ORIENTED ON ROOM AIR, IVF INFUSING ORDERED. PT VITALS TAKEN (SEE CHART). CIWA ASSESSED AND WAS 8. PRN IV ATIVAN ADMINISTERED (SEE MAR). RIGHT IV SITE NOTED TO BE INFLAMMED AND PAINFUL WHEN FLUSHED. RIGHT IV DC'D ON R FOREARM. CATHETER INTACT UPON REMOVAL, PT TOLERATED REMOVAL WELL. ASSESSMENT THEN COMPLETED (SEE CHART). PT REPORTS NO FURTHER NEEDS AT THIS TIME AND DENIES THE NEED TO VOID WHEN ASKED. CALL LIGHT IN REACH, BED IN LOWEST POSITION, BED ALARM ON, WILL CONTINUE PLAN OF CARE.
--- NOTE | 2022-05-16 23:24 | NUR ---
PT BED ALARM GOING OFF. PT SITTING UP IN BED AT THE EDGE OF THE BED. PT STATES HE WAS GOING TO USE THE URINAL TO VOID. PT VOIDED 425ML INTO URINAL WITHOUT ASSISTANCE AND IS NOW RESTING BACK IN BED. PT REPORTS NO FURTHER NEEDS AT HTIS TIME WHEN ASKED, IVF INFUSING, CALL LIGHT IN REACH, BED ALARM ON, WILL CONTINUE PLAN OF CARE.
--- NOTE | 2022-05-17 01:07 | NUR ---
PT RESTING IN BED ON ROOM AIR, IVF INFUSING. URINAL USED BY PT, 525ML OF URINE EMPTIED. PT NOW RESTING IN BED AND REPORTS NO FURTHER NEEDS WHEN ASKED. CALL LIGHT IN REACH, BED IN LOWEST POSTIION, BED ALARM ON, WILL CONTINUE PLAN OF CARE.
--- NOTE | 2022-05-17 02:27 | NUR ---
PT RESTING IN BED WITH EYES CLOSED. IVF INFUSING, PT ON ROOM AIR. PT AWOKE EASILY AT THIS TIME, SCHEDULED ATIVAN TAPER ADMINISTERED PO. CIWA 6 FOR TREMORS AND SWEAT (SEE CHART). PT PROVIDED WITH WARM BLANKETS PER HIS REQUEST AND REPORTS NO FURTHER NEEDS, WILL CONTINUE PLAN OF CARE. CALL LIGHT IN REACH, BED IN LOWEST POSITION, BED ALARM ON.
--- NOTE | 2022-05-17 03:10 | NUR ---
PT RESTING IN BED WITH HIS EYES CLOSED. PT ON ROOM AIR, IVF INFUSING. RESPIRATIONS NOTED AND ARE EVEN AND UNLABORED. PT IN NO APPARENT DISTRESS AND WAS LEFT UNDISTUBRED. WILL CONTINUE PLAN OF CARE.
--- NOTE | 2022-05-17 04:49 | NUR ---
PT RESTING IN BED AT THIS TIME WITH HIS EYES CLOSED. PT ON ROOM AIR, IVF INFUSING, PT ON ROOM AIR. PT IN NO APPARENT DISTRESS, RESPIRATIONS EVEN AND UNLABORED, PT LEFT UNDISTURBED, WILL CONTINUE PLAN OF CARE. CALL LIGHT IN REACH, BED IN LOWEST POSITION, BED ALARM ON.
--- NOTE | 2022-05-17 05:33 | NUR ---
PT RESTING IN BED AT THIS TIME WITH HIS EYES CLOSED. IVF INFUSING, PT ON ROOM AIR. PT AWOKE EASILY AND WAS ORIENTED X4. PT VITALS TAKEN AT THIS TIME (SEE CHART). CIWA ASSESSED AND WAS 8, PRN PO ATIVAN ADMINISTERED (SEE MAR). ASSESSMENT THEN COMPLETED (SEE CHART). SECOND IV ATTEMPTED BUT UNSUCCESSFUL X2. PATIENT TOLERATED ATTEMPTS WELL. LAB NOW IN TO DRAW BLOOD. PT REPORTS NO FURTHER NEEDS AT THIS TIME WHEN ASKED, WILL CONTINUE PLAN OF CARE.
--- NOTE | 2022-05-17 06:30 | NUR ---
PT RESTING IN BED IN NO APPARENT DISTRESS. NEW BAG OF IVF STARTED AND INFUSING AT ORDERED RATE. URINAL EMPTIED AT THIS TIME. PT RESPIRATIONS EVEN AND UNLABORED, PT IN NO APPARENT DISTRESS AND WAS LEFT UNDISTURBED, WILL CONTINUE PLAN OF CARE.
--- NOTE | 2022-05-17 07:30 | NUR ---
REPORT RECIEVED CARE OF PT ASSUMED AT THIS TIME.
--- NOTE | 2022-05-17 09:00 | NUR ---
ASSESSMENT AND MEDICATION ADMINISTRATION COMPLETED. PT'S LEFT FOREARM IV INFILTRATED. NEW IV STARTED IN RIGHT HAND. WELL TOLERATED BY PT. PT GIVEN 2 MG ORAL ATIVAN. CIWA SCORE OF 11. PT COMPLAINS OF MILD NAUSEA. PRN MEDICATION ADMINISTERED (SEE EMAR). SKIN IS FLUSHED, MILD TREMORS NOTED. PT HAS DRY MOUTH, AND SECRETIONS IN EYES. DISCUSSED PLAN TO GET PT UP TO CHAIR DURING THE DAY AND POSSIBLY SHOWER. PT REQUESTING TO REST AT THIS TIME. FATHER AT BEDSIDE. DISCUSSED LAB FINDINGS, MEDICATIONS, AND PLAN OF CARE FOR DAY. ALL QUESTIONS ANSWERED. CALL LIGHT WITHIN REACH. IV FLUIDS AND ABX INFUSING. SEIZURE PADS IN PLACE, WILL CONTINUE TO MONITOR.
--- NOTE | 2022-05-17 11:30 | NUR ---
PATIENT INTO EMPTY ROOM FOR SHOWER. PATIENT TOLERATED WELL, USING WASHCLOTH TO WASH HIS UPPER AND LOWER BODY. PATIENT ALSO DRIED AND DRESSED HIMSELF WITH LITTLE ASSISTANCE. PATIENT UP IN RECLINER AT THIS TIME. TEETH BRUSHED AND LUNCH PROVIDED. CALL LIGHT IN EASY REACH.
--- NOTE | 2022-05-17 11:30 | NUR ---
Spoke with Kiran, he is up in the chair. He cont. to not want to speak with anyone regarding his alcohol use. We then discussed plan of where he will go on dc. He states home. We then discussed dad has stated he will not be able to return home on dc, he states he is aware. He denies having friends he can stay with. I offered addresses of shelters and he states he would take this. Will return with this later.
--- NOTE | 2022-05-17 13:15 | NUR ---
PT REMAINS UP IN CHAIR, ATE ALL OF HIS CLEAR TRAY FOR LUNCH AND IS REQUESTING MORE BROTH. FATHER REMAINS AT BEDSIDE.
--- NOTE | 2022-05-17 14:21 | NUR ---
PT SITTING IN CHAIR. KDDDDDDDDDDDDDDDDDDDDDDDDDDDDDDDDDDDDDDDDDDDDDDDDDDDDDDDDDDDDDDDDDDDDDDDDDDDDD DDDDDDDDDDDDDDDDDDDDDDDDDDDDDDDDDDDDDDDDDDDDDDDDDDDDDDDDDDDDDDDDDDDDDDDDDDDDDD DDDDDDDDDDDDDDD PT SITTNG IN CHAIR, FINISHING UP BROTH, AND SAID HE WAS READY FOR MORE. IMCAELA LEGGETT AT . GAVE ENCOURAGEMENT, SHARED WITH ARCHIE DAS PT WOULD LIKE HIS DIET ADVANCED. SHE WILL FOLLOW
--- NOTE | 2022-05-17 14:40 | NUR ---
IN ROOM TO EVALUATE CIWA AND AND GIVE SCEDULED ATIVAN. PT COMPLAINED OF HEADACHE 10/10 AND REQUESTED IF THEIR WAS ANYTHING TO TAKE. NIO TYLENOL ORDERED. PT UP IN CHAIR A MENU PROVIDED. PT WAS ABLE TO GET UP AND AMBULATE TO THE BATHROOM INDEPENDENTLY. WHEN BACK IN CHAIR HEART RATE WITHIN NORMAL LIMITS.
--- NOTE | 2022-05-17 15:42 | NUR ---
DR RICK UPDATED ON CURRENT ASSESSMENT FINDINS. NEW ORDERS RECIEVED. TELEMETRY AND IV FLUIDS DISCONTINUED. PT AND PT FATHER UNDERSTAND PLAN TO GET CHEST XRAY, AND BE TRANSFERED TO THE MEDICAL FLOOR.
--- NOTE | 2022-05-17 17:20 | NUR ---
Delivered list to Kiran of shelters available in 30 mile radius. Dad is in the room and states pt will not need these as he will go to rehab. Dad takes the list and puts it in his bag. He then states pt will be going to rehab as he spoke with [facility] yesterday. Wendy BUTCHER visited the pt. Let him know pt had refused when we were in the room together. Dad denies calling [facility]. He states pt must go to a rehab and get his life together or he cannot return home. Pt is eating and does not join in the conversation. Let dad know pt had wanted a list of the shelters so I am providing. Let him know I think its a good idea for pt to go to a rehab, but pt will need to make the decision. Dad states pt will have to go to rehab.
--- NOTE | 2022-05-17 17:43 | NUR ---
EVALUATED PT CIWA AND RESULTED WITH 9. PT REQUESTED PRN ATIVAN (SEE EMAR). SITTING UP IN CHAIR EATING DINNER DENIES NAUSEA. FATHER REMAINS AT BEDSIDE.
--- NOTE | 2022-05-17 19:47 | NUR ---
REPORT RECEIVED FROM DHARMESH RN, WILL CONTINUE PLAN OF CARE.
--- NOTE | 2022-05-17 20:45 | NUR ---
PT STANDING AT THE BEDSIDE AT THIS TIME AWAKE AND ALERT. PT STATES HE JUST FINISHED VOIDING IN THE BATHROOM. PT NOW SITTING IN BED. PT ALERT AND ORIENTED X4 AT THIS TIME, CIWA 6. SCHEDULED MEDICATIONS ADMINISTERED AT THIS TIME (SEE MAR). NO PRN ATIVAN NEEDED AT THIS TIME. VITALS TAKEN AND ASSESSMENT COMPLETED (SEE CHART). PT PROVIDED WITH ICE WATER AT THIS TIME AND REPORTS NO FURTHER NEEDS WHEN ASKED. PT RESTING IN BED WATCHING TV AT THIS TIME, CALL LIGHT IN REACH, BED IN LOWEST POSITION, WILL CONTINUE PLAN OF CARE.
--- NOTE | 2022-05-17 21:38 | NUR ---
PT RESTING IN BED AT THIS TIME AWAKE AND ALERT. SCHEDULED ATIVAN TAPER ADMINISTERED (SEE MAR). PT REPORTS NO FURTHER NEEDS AT THIS TIME, WILL CONTINUE PLAN OF CARE.
--- NOTE | 2022-05-17 23:25 | NUR ---
PT RESTING IN BED WITH HIS EYES CLOSED AT THIS TIME. PT ON ROOM AIR, RESPIRATIONS EVEN AND UNLABORED. PT IN NO APPARENT DISTRESS AND WAS LEFT UNDISTURBED. WILL CONTINUE PLAN OF CARE. CALL LIGHT ON BED WITHIN REACH. BED IN LOWEST POSITION.
--- NOTE | 2022-05-18 01:36 | NUR ---
PT RESTING IN BED WITH HIS EYES CLOSED. PT IN NO APPARENT DISTRESS, RESPIRATIONS EVEN AND UNLABORED, CALL LIGHT IN REACH. PT LEFT UNDISTURBED AT THIS TIME, WILL CONTINUE PLAN OF CARE.
--- NOTE | 2022-05-18 02:45 | NUR ---
PT RESTING IN BED WITH HIS EYES CLOSED. PT ON ROOM AIR AND SALINE LOCKED. PT RESPIRATIONS EVEN, UNLABORED, PT IN NO APPARENT DISTRESS, IS NOT DIAPHORETIC, NO VISIBLE TREMORS PRESENT DURING SLEEP. PT LEFT UNDISTURBED AT THIS TIME, WILL CONTINUE PLAN OF CARE. CALL LIGHT IN REACH.
--- NOTE | 2022-05-18 04:45 | NUR ---
PT RESTING IN BED AT THIS TIME WITH HIS EYES CLOSED. PT IN NO APPARENT DISTRESS, RESPIRATIONS EVEN AND UNLABORED, CALL LIGHT IN REACH, BED IN LOWEST POSITION, WILL CONTINUE PLAN OF CARE.
--- NOTE | 2022-05-18 05:55 | NUR ---
PT RESTING IN BED WITH HIS EYES CLOSED IN NO APPARENT DISTRESS. PT AWOKE EASILY AND WAS ORIENTED X4. VITALS TAKEN AT THIS TIME (SEE CHART). CIWA OF 4 OBTAINED AT THIS TIME FOR VISIBLE TREMORS, MORE THAN NORMAL ACTIVITY, AND VERY MILD ANXIETY. SCHEDULED PO ATIVAN TAPER AND PROTONIX ADMINISTERED (SEE MAR). ASSESSMENT THEN COMPLETED (SEE CHART). PT DENIES THE NEED TO VOID AT THIS TIME AND STATES HE HAD VOID OVERNIGHT WHICH WAS UNMEASURED HE MISSED THE "URINAL/HAT". IN THE TOILET. PT PROVIDED WITH ICE WATER AT THIS TIME AND SODA AND REPORTS NO FURTHER NEEDS WHEN ASKED. CALL LIGHT IN REACH, BED IN LOWEST POSITION, WILL CONTINUE PLAN OF CARE.
--- NOTE | 2022-05-18 07:30 | NUR ---
REPORT RECEIVED FROM NIGHT RN - PLAN OF CARE REVIEWED. OTHER RN AT BEDSIDE DISCUSSING DC PLAN.
--- NOTE | 2022-05-18 08:00 | NUR ---
RN IN ROOM TO ASSESS PT AND ADMINISTER SCHEDULED MEDICAITONS. PT SITTING UP ON SIDE OF BED EATING BREAKFAST UPON ENTRY. DAD AT BEDSIDE. IV SITE FLUSHED, WNL. NOTABLE MILD TREMORS IN HANDS, DENIES WORSENING ANXIETY. SEE CIWA ASSESSMENT. PT STATES HE PLANS ON DISCHARGING TO "HOME" AND "FIGURING IN OUT". DENIES NEED FOR HELP REHABING.
--- NOTE | 2022-05-18 08:32 | NUR ---
SPOKE WITH PIPPA ALMANZA, SHE STATES SHE HAS SPOKEN WITH THE PATIENT SEVERAL TIMES REGARDING DETOX ASSISTANCE WITH LOCAL DRUG AND ALCOHOL RESOURCES. PIPPA ALMANZA STATES THE PATIENT REMAINS ADAMENT THAT HE IS NOT INTERESTED IN DETOX OR COUNSELING AT THIS TIME.
--- NOTE | 2022-05-18 08:55 | NUR ---
RN ROUNDING ON PT - RESTING IN BED ON SIDE, WAKES EASILY WITH VOICE. DAD REMAINS AT BEDSIDE. PT URINATES IN TOILET WITHOUT ASSISTANCE. VS STABLE.
[2022-05-18] MEDS ORDERED: GABAPENTIN600 MG PO (11:08)
[2022-05-18] MEDS ORDERED: NALTREXONE HCL50 MG PO (11:08)
[2022-05-18] MEDS ORDERED: ERYTHROMYCIN1 GM OU (11:13)
--- NOTE | 2022-05-18 11:37 | NUR ---
RN IN ROOM TO PROVIDE DC EDUCATION - FATHER PRESENT FOR THIS. PT DENIES QUESTIONS AT THIS TIME. PROVIDED LUNCH - INCREASED APPETITE.
--- NOTE | 2022-05-18 13:19 | NUR ---
PT ALERT, DAD IN ROOM. PT SITTING IN CHAIR, TRYING TO GET DRRESSED FOR DC. NOTICED TREMORS IN HANDS, PT HAVING TROUBLE SOMEWHAT FOCUSING. DAD IS VERY EXPRESSIVE, THANKED ME FOR VISIT. GAVE ENCOURAGEMENT, WILL FOLLOW
== END 2022-05-18 12:15 | disposition home or self-care (01) | DRG 897 ==
LOC: ED 11:58 → CCU 14:45
PROVIDERS: ADMIT Internal Medicine; ATTEND Internal Medicine
DX: F10.239 Alcohol dependence with withdrawal, unspecified (principal); N17.9 Acute kidney failure, unspecified; E87.1 Hypo-osmolality and hyponatremia; E87.2 Acidosis; R56.9 Unspecified convulsions; E86.1 Hypovolemia; E87.6 Hypokalemia; E83.42 Hypomagnesemia; K70.10 Alcoholic hepatitis without ascites; H10.30 Unspecified acute conjunctivitis, unspecified eye; F41.9 Anxiety disorder, unspecified; K21.9 Gastro-esophageal reflux disease without esophagitis; I10 Essential (primary) hypertension; K76.0 Fatty (change of) liver, not elsewhere classified; F17.210 Nicotine dependence, cigarettes, uncomplicated; Z88.8 Allergy status to other drugs, medicaments and biological substances; Z79.899 Other long term (current) drug therapy; Z20.822 Contact with and (suspected) exposure to COVID-19
CPT/HCPCS: 36415; 71045; 80048; 80053; 81001; 83690; 83735; 85025; 85610; 87088; 87502; A9270; A9270-GY; C9113; G0480; J1956; J2060; J2405; J2560; J3360; J3411; J3475; J3480; J7030; J7060; U0003

== ENCOUNTER 2025-01-04 21:30 | Inpatient (IN) | payer OTHER ==
[~2025-01-04] VITALS: Ht 188 cm; Wt 89.9 kg
[~2025-01-04 21:30] MED LIST changes: +ERYTHROMYCIN1 GM OU; +ESCITALOPRAM OX20 MG PO; +GABAPENTIN600 MG PO; +LORAZEPAM1 MG PO; +METAMUCIL660 GM PO
[2025-01-04 22:09] LABS: HEMATOCRIT 37.4 % (35.0-50.0); HEMOGLOBIN 13.4 g/dL (12.0-18.0); MCH 34.4 (27-36); MCHC 35.9 g/dl (30-36); PLATELET COUNT 117 K/uL (140-440); RDW 13.6 (10.5-15.0)
[2025-01-04 22:29] LABS: LYMPHOCYTES, MANUAL DIFF 5; MONOCYTES, MANUAL DIFF 8; NEUTROPHILS, MANUAL DIFF 87
[2025-01-04 23:18] LABS: ALBUMIN 4.1 g/dL (3.4-5.0); ALBUMIN/GLOBULIN RATIO 0.89 (1.1-2.4); ALCOHOL, MEDICAL <3 ng/dL (<3); ALKALINE PHOSPHATASE 75 U/L (46-116); ALT (SGPT) 105 U/L (14-59); ANION GAP 21.5 (7-21); AST (SGOT) 145 U/L (15-37); BILIRUBIN, TOTAL 2.3 mg/dL (0.2-1.0); BUN/CREATININE RATIO 8.29 (6.0-28.6); CALCIUM 9.5 mg/dL (8.5-10.1); CARBON DIOXIDE 27 mmol/L (21-32); CHLORIDE 75 mmol/L (98-107); CREATININE, SERUM 2.05 mg/dL (0.70-1.30); GLOMERULAR FILTRATION RATE,EST 42 mL/min (>60); POTASSIUM 2.5 mmol/L (3.5-5.1); PROTEIN, TOTAL 8.7 g/dL (6.4-8.2); UREA NITROGEN 17 mg/dL (7-18)
[2025-01-04] MEDS ORDERED: LORazepam 2 MG/ML VIAL IV ONE (23:45)
[2025-01-05] VITALS (14 sets, daily range): BP systolic 102–144; BP diastolic 67–91
[2025-01-05] MEDS ORDERED: SODIUM CHLORIDE 0.9% 1,000 ML IV PRN ×2 (00:15)
[2025-01-05] MEDS ORDERED: LORazepam 2 MG/ML VIAL IV ONE (00:15)
[2025-01-05] MEDS ORDERED: DIPHTH,PERTUSS(ACELL),TET VAC 0.5 ML SYRINGE IM ONE (00:15)
[2025-01-05] MEDS ORDERED: POTASSIUM CHLORIDE 10 MEQ/100 ML BAG IV SCH ×3 (00:15→23:15)
[2025-01-05] MEDS ORDERED: THIAMINE HCL 200 MG/2 ML VIAL IV ONE (00:15)
[2025-01-05] MEDS ORDERED: FOLIC ACID 1 MG/0.2 ML ML IV ONE (00:15)
[2025-01-05] MEDS ORDERED: SODIUM CHLORIDE 0.9% 1,000 ML IV ONE (00:15)
[2025-01-05] MEDS ORDERED: SODIUM CHLORIDE 0.9% 1,000 ML IV SCH ×2 (00:30→01:45)
[2025-01-05] MEDS ORDERED: LORazepam 2 MG/ML VIAL IV/IM PRN ×4 (01:45→14:15)
[2025-01-05] MEDS ORDERED: LORazepam 1 MG TAB PO PRN ×2 (01:45→02:00)
[2025-01-05] MEDS ORDERED: diazePAM 10 MG/2 ML SYR IV PRN ×2 (01:45→02:00)
[2025-01-05] MEDS ORDERED: ondansetron HCL 4 MG/2 ML VIAL IV PRN ×2 (01:45→08:30)
[2025-01-05 05:31] LABS: BILIRUBIN, URINE NEGATIVE (negative); BLOOD/HGB, URINE LARGE (Negative); KETONE, URINE SMALL (Negative); LEUK ESTERASE, URINE NEGATIVE (negative); NITRITE, URINE POSITIVE (negative)
[2025-01-05 05:32] LABS: ANION GAP 7.7 (7-21); BUN/CREATININE RATIO 15.38 (6.0-28.6); CALCIUM 8.3 mg/dL (8.5-10.1); CREATININE, SERUM 1.3 mg/dL (0.70-1.30); POTASSIUM 2.7 mmol/L (3.5-5.1)
[2025-01-05 05:56] LABS: AMPHETAMINES, URINE POSITIVE (NEGATIVE); BARBITURATES, URINE NEGATIVE (NEGATIVE); BENZODIAZEPINE, URINE NEGATIVE (NEGATIVE); BUPRENORPHINE, URINE NEGATIVE (NEGATIVE); CANNABINOID, URINE POSITIVE (NEGATIVE); COCAINE, URINE NEGATIVE (NEGATIVE); ECSTASY, URINE NEGATIVE (NEGATIVE); FENTANYL, URINE NEGATIVE (NEGATIVE); METHADONE, URINE NEGATIVE (NEGATIVE); OPIATES, URINE NEGATIVE (NEGATIVE); OXYCODONE, URINE NEGATIVE (NEGATIVE); PHENCYCLIDINE, URINE NEGATIVE (NEGATIVE)
[2025-01-05 06:04] LABS: CRYSTALS, URINE AMORPHOUS URATES 2+ (0-1+); EPITHELIAL CELLS, URINE NONE SEEN /lpf (0-1+)
[2025-01-05 06:05] LABS: BACTERIA, URINE 2+ /hpf (negative); CASTS, URINE NONE SEEN \\lpf
[2025-01-05 06:06] LABS: COLLECTION TYPE, URINE CLEAN CATCH; REFLEX CULTURE, URINE Yes (No)
[2025-01-05] MEDS ORDERED: PIPERACILLIN/TAZOBACTAM 3.375 GM in SODIUM CHLORIDE 0.9% 100 ML IV SCH (06:34)
[2025-01-05] MEDS ORDERED: PHENOBARBITAL SOD 130 MG/ML VIAL IV ONE ×3 (07:00→14:15)
[2025-01-05] MEDS ORDERED: POTASSIUM CHLORIDE 40 MEQ in DEXTROSE 5% 250 ML IV ONE ×3 (07:00→23:00)
[2025-01-05] MEDS ORDERED: FOLIC ACID 1 MG/0.2 ML ML IV SCH (08:27)
[2025-01-05] MEDS ORDERED: THIAMINE HCL 200 MG/2 ML VIAL IV SCH (08:28)
[2025-01-05 09:24] LABS: ANION GAP 9.9 (7-21); BUN/CREATININE RATIO 17.6 (6.0-28.6); CALCIUM 8.2 mg/dL (8.5-10.1); CREATININE, SERUM 1.25 mg/dL (0.70-1.30); POTASSIUM 2.9 mmol/L (3.5-5.1)
[2025-01-05] MEDS ORDERED: QUETIAPINE FUMA50 MG PO (10:31)
[2025-01-05] MEDS ORDERED: QUETIAPINE FUM100 MG PO (10:32)
[2025-01-05] MEDS ORDERED: GABAPENTIN600 MG PO (10:33)
[2025-01-05] MEDS ORDERED: LIDOCAINE 2% VISCOUS 6 ML SYR TOP ONE (12:00)
[2025-01-05] MEDS ORDERED: PHARMACY RENAL DOSE ADJUSTMENT 1 DOSE MISC PO SCH (12:00)
[2025-01-05 13:31] LABS: ANION GAP 8.3 (7-21); BUN/CREATININE RATIO 19.13 (6.0-28.6); CALCIUM 8.1 mg/dL (8.5-10.1); CREATININE, SERUM 1.15 mg/dL (0.70-1.30); POTASSIUM 3.3 mmol/L (3.5-5.1)
[2025-01-05] MEDS ORDERED: ERYTHROMYCIN 3.5 GM TUBE OU SCH (14:59)
[2025-01-05 17:11] LABS: ANION GAP 5.5 (7-21); CREATININE, SERUM 1.1 mg/dL (0.70-1.30); POTASSIUM 3.5 mmol/L (3.5-5.1)
[2025-01-05 22:16] LABS: ANION GAP 7.5 (7-21); BUN/CREATININE RATIO 20.79 (6.0-28.6); CALCIUM 8.3 mg/dL (8.5-10.1); CREATININE, SERUM 1.01 mg/dL (0.70-1.30); POTASSIUM 3.5 mmol/L (3.5-5.1)
[2025-01-05] MEDS ORDERED: SODIUM CHLORIDE 0.45% 1,000 ML IV SCH ×2 (23:00→23:30)
[2025-01-06] VITALS (12 sets, daily range): BP systolic 107–149; BP diastolic 71–100
[2025-01-06 02:17] LABS: ANION GAP 11.9 (7-21); CALCIUM 8.2 mg/dL (8.5-10.1); POTASSIUM 3.9 mmol/L (3.5-5.1)
[2025-01-06 05:30] LABS: BASOPHILS 0.3 % (0-2); HEMATOCRIT 31.8 % (35.0-50.0); HEMOGLOBIN 11.3 g/dL (12.0-18.0); MCH 34.8 (27-36); MCHC 35.4 g/dl (30-36); MCV 98.1 fl (81-99); MONOCYTES 10.5 % (0-12); NEUTROPHILS 75.2 % (39-80); PLATELET COUNT 103 K/uL (140-440); RBC 3.24 M/ul (4.3-5.7); RDW 13.5 (10.5-15.0)
[2025-01-06 05:47] LABS: ALBUMIN/GLOBULIN RATIO 0.77 (1.1-2.4); ANION GAP 10.6 (7-21); BUN/CREATININE RATIO 20.2 (6.0-28.6); CALCIUM 8.3 mg/dL (8.5-10.1); CREATININE, SERUM 0.99 mg/dL (0.70-1.30); MAGNESIUM 2.7 mg/dL (1.8-2.4); POTASSIUM 3.6 mmol/L (3.5-5.1); PROTEIN, TOTAL 6.9 g/dL (6.4-8.2)
[2025-01-06] MEDS ORDERED: SODIUM CHLORIDE 0.9% 1,000 ML IV SCH (06:30)
[2025-01-06 10:24] LABS: INR 1.22 (0.80-1.30); PROTIME 14.7 Sec (11.2-14.2)
[2025-01-06 10:25] LABS: ANION GAP 10.6 (7-21); BUN/CREATININE RATIO 20.65 (6.0-28.6); CALCIUM 8.3 mg/dL (8.5-10.1); CREATININE, SERUM 0.92 mg/dL (0.70-1.30); POTASSIUM 3.6 mmol/L (3.5-5.1)
[2025-01-06 14:38] LABS: ANION GAP 8.2 (7-21); BUN/CREATININE RATIO 16.84 (6.0-28.6); CREATININE, SERUM 0.95 mg/dL (0.70-1.30); POTASSIUM 3.2 mmol/L (3.5-5.1)
[2025-01-06] MEDS ORDERED: POTASSIUM CHLORIDE 40 MEQ,LIDOCAINE HCL 1% 40 MG in DEXTROSE 5% 250 ML IV ONE (16:15)
[2025-01-06] MEDS ORDERED: LORAZEPAM1 MG PO (16:28)
[2025-01-06] MEDS ORDERED: ACETAMINOPHEN 500 MG TAB PO PRN (20:45)
[2025-01-06] MEDS ORDERED: LORazepam 2 MG/ML VIAL IV/IM PRN (21:45)
[2025-01-07 00:04] VITALS: BP 108/64
[2025-01-07 04:25] VITALS: BP 113/71
[2025-01-07 06:09] LABS: BASOPHILS 0.5 % (0-2); HEMATOCRIT 29.1 % (35.0-50.0); HEMOGLOBIN 10.3 g/dL (12.0-18.0); LYMPHOCYTES 20.9 % (24-44); MCHC 35.4 g/dl (30-36); MCV 98.7 fl (81-99); MONOCYTES 13.2 % (0-12); NEUTROPHILS 63.4 % (39-80); PLATELET COUNT 112 K/uL (140-440); RBC 2.95 M/ul (4.3-5.7); RDW 13.7 (10.5-15.0)
[2025-01-07 06:18] LABS: ALBUMIN 2.8 g/dL (3.4-5.0); ALBUMIN/GLOBULIN RATIO 0.72 (1.1-2.4); ANION GAP 9.5 (7-21); BILIRUBIN, TOTAL 0.8 mg/dL (0.2-1.0); BUN/CREATININE RATIO 9.19 (6.0-28.6); CALCIUM 8.1 mg/dL (8.5-10.1); CREATININE, SERUM 0.87 mg/dL (0.70-1.30); MAGNESIUM 2.2 mg/dL (1.8-2.4); POTASSIUM 3.5 mmol/L (3.5-5.1); PROTEIN, TOTAL 6.7 g/dL (6.4-8.2)
[2025-01-07 08:00] VITALS: BP 119/67
[2025-01-07 09:04] LABS: HEPATITIS A ANTIBODY, IGM Negative (Negative); HEPATITIS B CORE ANTIBODY, IGM Negative (Negative); HEPATITIS B SURFACE ANTIGEN Negative (Negative); HEPATITIS C AB CIA INTERP Negative (Negative); HEPATITIS C ANTIBODY CIA INDEX 0.12 IV (())
[2025-01-07 12:11] VITALS: BP 140/94
[2025-01-07] MEDS ORDERED: CEFDINIR 300 MG CAP PO SCH (13:54)
[2025-01-07] MEDS ORDERED: ESCITALOPRAM OXALATE 10 MG TAB PO SCH (15:26)
[2025-01-07] MEDS ORDERED: PANTOPRAZOLE SODIUM 40 MG TABEC PO SCH (15:27)
[2025-01-07 16:00] VITALS: BP 104/88
[2025-01-07] MEDS ORDERED: AMOXICILLIN/CLAVULANATE K 875 MG TAB PO SCH (17:00)
[2025-01-07] MEDS ORDERED: metroNIDAZOLE 250 MG TAB PO SCH (17:00)
[2025-01-07 20:00] VITALS: BP 131/95
[2025-01-07] MEDS ORDERED: GABAPENTIN 300 MG CAP PO SCH (21:00)
[2025-01-08 05:35] LABS: BASOPHILS 0.9 % (0-2); EOSINOPHILS 2.1 % (0-6); HEMATOCRIT 28.9 % (35.0-50.0); HEMOGLOBIN 10.2 g/dL (12.0-18.0); LYMPHOCYTES 26.2 % (24-44); MCH 34.4 (27-36); MCHC 35.2 g/dl (30-36); MCV 97.7 fl (81-99); MONOCYTES 21.6 % (0-12); NEUTROPHILS 49.2 % (39-80); PLATELET COUNT 145 K/uL (140-440); RBC 2.96 M/ul (4.3-5.7); RDW 13.4 (10.5-15.0)
[2025-01-08 05:49] LABS: ALBUMIN/GLOBULIN RATIO 0.77 (1.1-2.4); ANION GAP 12.2 (7-21); BILIRUBIN, TOTAL 0.8 mg/dL (0.2-1.0); BUN/CREATININE RATIO 7.14 (6.0-28.6); CALCIUM 8.8 mg/dL (8.5-10.1); CREATININE, SERUM 0.84 mg/dL (0.70-1.30); MAGNESIUM 1.9 mg/dL (1.8-2.4); POTASSIUM 3.2 mmol/L (3.5-5.1); PROTEIN, TOTAL 6.9 g/dL (6.4-8.2)
[2025-01-08 07:04] VITALS: BP 144/93
[2025-01-08] MEDS ORDERED: POTASSIUM CHLORIDE 40 MEQ,LIDOCAINE HCL 1% 40 MG in DEXTROSE 5% 250 ML IV ONE ×2 (07:15→09:00)
[2025-01-08 08:55] VITALS: BP 149/105
[2025-01-08] MEDS ORDERED: POTASSIUM CHLORIDE 10 MEQ TABCR PO ONE (09:00)
[2025-01-08] MEDS ORDERED: CEFDINIR300 MG PO (10:10)
== END 2025-01-08 10:55 | disposition home or self-care (01) | DRG 896 ==
LOC: ED 21:30 → CCU 01-05 00:17
PROVIDERS: Emergency Medicine; ADMIT Student in an Organized Health Care Education/Training Program; ATTEND Student in an Organized Health Care Education/Training Program
PROC: 0HQ0XZZ Repair Scalp Skin, External Approach (ICD-10-PCS; principal; 2025-01-05)
PROC: HZ2ZZZZ Detoxification Services for Substance Abuse Treatment (ICD-10-PCS; 2025-01-05)
DX: F10.231 Alcohol dependence with withdrawal delirium (principal); J69.0 Pneumonitis due to inhalation of food and vomit; E87.1 Hypo-osmolality and hyponatremia; N39.0 Urinary tract infection, site not specified; F10.229 Alcohol dependence with intoxication, unspecified; I10 Essential (primary) hypertension; F41.9 Anxiety disorder, unspecified; K76.0 Fatty (change of) liver, not elsewhere classified; F32.A Depression, unspecified; F17.210 Nicotine dependence, cigarettes, uncomplicated; S01.01XA Laceration without foreign body of scalp, initial encounter; K21.9 Gastro-esophageal reflux disease without esophagitis; F39 Unspecified mood [affective] disorder; E87.6 Hypokalemia; E80.6 Other disorders of bilirubin metabolism; F15.90 Other stimulant use, unspecified, uncomplicated; F12.10 Cannabis abuse, uncomplicated; Y90.0 Blood alcohol level of less than 20 mg/100 ml; D72.829 Elevated white blood cell count, unspecified; Z88.8 Allergy status to other drugs, medicaments and biological substances; Z79.899 Other long term (current) drug therapy; Z71.41 Alcohol abuse counseling and surveillance of alcoholic; W01.198A Fall on same level from slipping, tripping and stumbling with subsequent striking against other object, initial encounter; Y92.009 Unspecified place in unspecified non-institutional (private) residence as the place of occurrence of the external cause
CPT/HCPCS: 12002; 31720; 36415; 36592; 51702; 70450; 71045; 72125; 80048; 80053; 80074; 80307; 81001; 82550; 83735; 84484; 85025; 85610; 87088; 90471; 90715; 97162; 97165; 97530; 99285-25; A9270; A9270-GY; G0480; J2060; J2405; J2543; J2560; J3411; J3480; J3490; J7030; J7060

== ENCOUNTER 2025-03-26 07:25 | Day surgery (SDC) | payer OTHER ==
[2025-03-18 14:43] VITALS: BP 112/69
[~2025-03-26] VITALS: Ht 188 cm; Wt 91.0 kg
[~2025-03-26 07:25] MED LIST changes: +CEFDINIR300 MG PO; +IBLOOD GLUCOSE TEST STRIP 1 EA TEST VI PRN; +LACTATED RINGER'S 1,000 ML IV SCH; +LIDOCAINE HCL 1% 5 ML SDV INJ ONE; +QUETIAPINE FUM100 MG PO; +QUETIAPINE FUMA50 MG PO
--- NOTE | 2025-03-26 07:29 | NUR ---
PT NOT AVAILABLE FOR VISIT. PROVIDED PRAYER.
[2025-03-26] MEDS ORDERED: GLUCAGON,HUMAN RECOMBINANT 1 MG/ML VIAL ONE (07:32)
[2025-03-26 07:41] VITALS: BP 126/79
[2025-03-26] MEDS ORDERED: LIDOCAINE HCL 2% 5 ML SDV ONE (09:15)
--- NOTE | 2025-03-26 09:42 | NUR ---
03/26/25 0942 Brittany Tom 0930- PT ARRIVES TO PACU, SEMI MEYERS NON REACTIVE TO STIMULUS. BITE BLOCK IN PLACE, BREATHING EVEN AND NON LABORED, ON ROOM AIR. ABD SOFT, NON DISTENDED. LR INFUSING TO RW IV. ALL MONITORS IN PLACE. 0936- PT REACTIVE WHEN BITE BLOCK TOUCHED, FOLLOW COMMANDS TO REMOVE. REORIENTED TO TIME AND PLACE. DENIES PAIN OR NAUSEA.
[2025-03-26 09:47] VITALS: BP 121/85
--- NOTE | 2025-03-30 13:13 | PATH ---
[facility] [address] [place], [place] [address] Signed SPECIMEN(S): A GE JUNCTION SPECIMEN SOURCE: A. 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 AMB MICROSCOPIC EXAMINATION: Histologic sections of all submitted blocks are examined by light microscopy. These findings, together with the gross examination, support the pathologic diagnosis. GROSS DESCRIPTION: The specimen, labeled and designated "Christophe, GE junction biopsy," is received in formalin and consists of one cai soft tissue fragment, 0.4 cm. Entirely submitted in (A1). VB (under the direct supervision of a pathologist) The Gross Description was prepared using a voice recognition system. The report was reviewed for accuracy; however, sound-alike word errors, addition and/or deletions may occur. If there is any question about this report, please contact Client Services. ADDITIONAL NOTES: Immunohistochemical and/or in situ hybridization studies if performed in this case included appropriate positive controls that reacted as expected. This test was developed and its performance characteristics determined by [facility]. It has not been cleared or approved by the U.S. Food and Drug Administration. The FDA has determined that such clearance or approval is not necessary. This test is used for clinical purposes. It should not be regarded as investigational or for research. [facility] is certified under the Clinical Laboratory Improvement Amendments of 1988 (CLIA) as qualified to perform high complexity clinical laboratory testing. PATIENT NAME: OLLIE GRACE PATHOLOGY DATE OF : 87 REPORT #: [id number] PHYSICIAN: ELI MASON PCP: KATHERINE AGUIRRE PAC REPORT IS CONFIDENTIAL AND NOT TO BE RELEASED WITHOUT AUTHORIZATION [facility] [address] [place], [place] [address] Signed PERFORMING LABORATORY: Technical component was performed by [facility], [address] [place] [address] (CLIA# [id number]). Professional interpretation was performed by [facility] - [address] [id number] Diagnostician: Lizzie Mejias MD Pathologist Electronically Signed 03/30/2025 Copies: ~ PATIENT NAME: OLLIE GRACE PATHOLOGY DATE OF : [birth year] REPORT #: [id number] PHYSICIAN: ELI MASON PCP: KATHERINE AGUIRRE PAC REPORT IS CONFIDENTIAL AND NOT TO BE RELEASED WITHOUT AUTHORIZATION
--- NOTE | 2025-04-01 15:14 | OR ---
[facility] [address] [place], [place] [address] Signed DATE OF OPERATION: 03/26/2025 SURGEON: Desire Chowdhury DO PREOPERATIVE DIAGNOSIS: Gastroreflux symptoms. POSTOPERATIVE DIAGNOSES: 1. Gastroreflux symptoms with LA grade an esophagitis. 2. Punctate gastritis. PROCEDURE: Esophagogastroduodenoscopy with biopsy at GE junction. ANESTHESIA: IV sedation. ESTIMATED BLOOD LOSS: None. DRAINS: None. COMPLICATIONS: None. DESCRIPTION OF PROCEDURE: The patient was brought to the operating room, placed in supine position. After induction of IV sedation through preanesthetized oropharynx and a bite block, the Olympus video endoscope was then introduced through the mouth, directed through the length of esophagus first, second and third portions of the esophagus and into the distal esophagus aspect down in the GE junction. Some low LA grade A esophagitis was noted. No ulcerations appreciated. Random biopsy was performed, passed off the field. Scope was then advanced into the stomach, general exploration was carried out. No intrinsic or extrinsic masses. Some moderate gastritis was noted at the antrum itself. Scope was brought through the pylorus into the first and second portion of duodenum was essentially unremarkable. Scope was brought back into the stomach and retroflexed on itself. No evidence of hiatal hernia was noted. The scope was placed into position. Stomach was decompressed. Scope was withdrawn in its entirety. The patient tolerated the procedure Electronically Signed By: DESIRE CHOWDHURY DO 04/01/25 1514 PATIENT NAME: OLLIE GRACE OPERATIVE REPORT DATE OF : 87 REPORT #: [id number] PHYSICIAN: DESIRE CHOWDHURY DO PCP: KATHERINE AGUIRRE PAC REPORT IS CONFIDENTIAL AND NOT TO BE RELEASED WITHOUT AUTHORIZATION [address] [place], [place] [address] Signed well and went to recovery room in satisfactory condition. Desire Chowdhury DO RS/MODL /[id number] Copies: ~ Electronically Signed By: DESIRE CHOWDHURY DO 04/01/25 1514 PATIENT NAME: OLLIE GRACE OPERATIVE REPORT DATE OF : 87 REPORT #: [id number] PHYSICIAN: DESIRE CHOWDHURY DO PCP: KATHERINE AGUIRRE PAC REPORT IS CONFIDENTIAL AND NOT TO BE RELEASED WITHOUT AUTHORIZATION
== END 2025-03-26 09:53 | disposition home or self-care (01) ==
LOC: DS 07:25
PROVIDERS: ATTEND Surgery
PROC: 0DB48ZX Excision of Esophagogastric Junction, Via Natural or Artificial Opening Endoscopic, Diagnostic (ICD-10-PCS; principal; 2025-03-26 09:40)
DX: K21.00 Gastro-esophageal reflux disease with esophagitis, without bleeding (principal); K29.60 Other gastritis without bleeding; F10.21 Alcohol dependence, in remission; Z87.891 Personal history of nicotine dependence; Z79.899 Other long term (current) drug therapy; Z88.8 Allergy status to other drugs, medicaments and biological substances
CPT/HCPCS: 00731; 88305; J1610; J2003; J2704; J7121